=== PATIENT | female | born 1955 | race Caucasian/White ===

== ENCOUNTER 2022-04-04 05:32 | Inpatient (IN) ==
[2022-03-27 16:27] LABS: Basophils % 0.3 % (0.0-0.8); Eosinophils # 0.1 10*3/uL (0.0-0.87); Eosinophils % 1.7 % (0.00-10.9); Hematocrit 36.9 VOL% (35.7-47.0); Hemoglobin 11.2 GM/DL (12.0-16.0); Immature Granulocytes % 0.3 %; Immature Granulocytes Absolute 0.02 #; Lymphocytes # 1.3 10*3/uL (1.4-4.0); Lymphocytes % 21.7 % (21.3-54.2); Mean Corpuscular HGB Conc 30.4 GM/DL (32-36); Mean Corpuscular Volume 81.3 FL (87-102); Mean Platelet Volume 12.2 FL (9.6-12.0); Monocytes # 0.4 10*3/uL (0.11-0.8); Monocytes % 6.1 % (1.7-12.7); Neutrophils % 69.9 % (38.7-73.9); Platelet Count 234 T/CUMM (130-400); Red Blood Count 4.54 MC/CUMM (3.8-5.5); Red Cell Distribution Width 14.6 % (9.3-17.3); White Blood Count 5.8 T/CUMM (4-12)
[2022-03-27 16:45] LABS: Calcium 9.3 MG/DL (8.5-10.1); Osmolality,Calculated 275.5 MOS/KG (273-304); Potassium 4.1 MMOL/L (3.5-5.1)
[2022-04-04] MEDS ORDERED: ALVIMOPAN 12 MG CAPSULE ONE (05:41)
[2022-04-04] MEDS ORDERED: ERTAPENEM 1,000 MG in SODIUM CHLORIDE 0.9% 100 ML IV ONE (06:00)
[2022-04-04] MEDS: LACTATED RINGERS 1,000 ML IV SCH ×5 (06:15→21:55)
[2022-04-04] MEDS ORDERED: FAMOTIDINE 20 MG TABLET PO ONE (06:19)
[2022-04-04] MEDS ORDERED: LIDOCAINE 2% 5 ML VIAL ONE (06:28)
[2022-04-04] MEDS ORDERED: SEVOFLURANE 1 UNIT/15 MINUTE INH ONE ×16 (06:28→11:03)
[2022-04-04] MEDS ORDERED: ROCURONIUM 50 MG/5 ML VIAL IV ONE ×2 (06:28→10:36)
[2022-04-04] MEDS ORDERED: propofoL 200 MG/20 ML VIAL IV ONE (06:28)
[2022-04-04] MEDS ORDERED: DEXAMETHASONE 4 MG/1 ML VIAL ONE ×3 (06:28→07:29)
[2022-04-04] MEDS ORDERED: fentaNYL 100 MCG/2 ML VIAL ONE ×2 (06:28→08:28)
[2022-04-04] MEDS ORDERED: ONDANSETRON 4 MG/2 ML VIAL ONE ×2 (06:28→07:29)
[2022-04-04] MEDS ORDERED: MIDAZOLAM 2 MG/2 ML VIAL ONE (06:29)
[2022-04-04] MEDS ORDERED: ACETAMINOPHEN INJ 1,000 MG/100 ML VIAL IV ONE (06:32)
[2022-04-04] MEDS ORDERED: ROPIVACAINE 0.5% 30 ML VIAL ONE (06:35)
[2022-04-04] MEDS ORDERED: LIDOCAINE 1% 5 ML VIAL ONE (06:35)
[2022-04-04] MEDS ORDERED: LIDOCAINE 1%/EPI INJ 20 ML VIAL ONE (06:48)
[2022-04-04] MEDS ORDERED: BUPIVACAINE MPF 0.25% 10 ML VIAL ONE (06:48)
[2022-04-04] MEDS ORDERED: TISSUE ADHESIVE 1 EACH APPLICATOR TOP ONE (06:48)
[2022-04-04] MEDS ORDERED: KETOROLAC 30 MG/1 ML VIAL ONE (07:30)
[2022-04-04] MEDS ORDERED: PHENYLEPHRINE 1 MG/10 ML SYRINGE IV ONE ×2 (07:30→07:48)
[2022-04-04] MEDS ORDERED: ePHEDrine 50 MG/ML VIAL ONE (07:48)
[2022-04-04] MEDS ORDERED: hydrALAZINE 20 MG/1 ML VIAL ONE (08:55)
[2022-04-04] MEDS ORDERED: GLYCOPYRROLATE 0.4 MG/2 ML VIAL ONE (09:51)
[2022-04-04] MEDS ORDERED: NEOSTIGMINE 10 MG/10 ML VIAL ONE (09:51)
[2022-04-04] MEDS ORDERED: INDOCYANINE GREEN 25 MG VIAL IV ONE (09:55)
[2022-04-04] MEDS ORDERED: LACTATED RINGERS 1,000 ML IV ONE ×2 (11:02→11:03)
[2022-04-04] MEDS ORDERED: LORATADINE 10 MG TABLET PO PRN (11:17)
[2022-04-04] MEDS ORDERED: HYDROmorphone 1 MG/1 ML SYRINGE IV PRN (11:17)
[2022-04-04] MEDS ORDERED: guaiFENesin 200 MG/10 ML UDCUP PO PRN (11:17)
[2022-04-04] MEDS ORDERED: PROMETHAZINE 25 MG TABLET PO PRN (11:17)
[2022-04-04] MEDS ORDERED: ONDANSETRON 4 MG/2 ML VIAL IV PRN (11:17)
[2022-04-04 13:19] LABS: Basophils % 0.1 % (0.0-0.8); Hematocrit 31.6 VOL% (35.7-47.0); Hemoglobin 9.5 GM/DL (12.0-16.0); Immature Granulocytes % 0.5 %; Immature Granulocytes Absolute 0.05 #; Lymphocytes # 0.5 10*3/uL (1.4-4.0); Lymphocytes % 4.7 % (21.3-54.2); Mean Corpuscular HGB Conc 30.1 GM/DL (32-36); Mean Corpuscular Volume 82.1 FL (87-102); Monocytes # 0.3 10*3/uL (0.11-0.8); Monocytes % 2.8 % (1.7-12.7); Neutrophils % 91.9 % (38.7-73.9); Platelet Count 197 T/CUMM (130-400); Red Blood Count 3.85 MC/CUMM (3.8-5.5); Red Cell Distribution Width 14.6 % (9.3-17.3); White Blood Count 9.8 T/CUMM (4-12)
[2022-04-04 13:36] LABS: Calcium 8.6 MG/DL (8.5-10.1); Osmolality,Calculated 283.7 MOS/KG (273-304); Potassium 2.8 MMOL/L (3.5-5.1)
[2022-04-04] MEDS ORDERED: POTASSIUM CHLORIDE RIDER 20 MEQ/100 ML PREMIX IV PRN (14:01)
[2022-04-04] MEDS: KETOROLAC 15 MG/1 ML VIAL IV SCH ×3 (15:02→23:34)
[2022-04-04] MEDS: POTASSIUM CHLORIDE RIDER 10 MEQ/100 ML PREMIX IV PRN ×5 (15:05→23:34)
[2022-04-04 15:51] LABS: Band Neutrophils 3 % (0-10); Lymphocytes 3 % (20-55)
[2022-04-04 15:52] LABS: Platelet Estimate Normal; Total Cells Counted 100
[2022-04-04] MEDS: NYSTATIN OINT 15 GM TUBE TOP SCH ×3 (17:21→21:21)
[2022-04-04] MEDS: MEMANTINE 10 MG TABLET PO SCH ×2 (21:15→21:22)
[2022-04-04] MEDS: traZODone 50 MG TABLET PO SCH ×2 (21:15→21:22)
[2022-04-04] MEDS: valACYclovir 500 MG TABLET PO SCH ×2 (21:15→21:23)
[2022-04-04] MEDS: ALVIMOPAN 12 MG CAPSULE PO SCH ×2 (21:15→21:22)
[2022-04-05] MEDS: KETOROLAC 15 MG/1 ML VIAL IV SCH ×4 (05:37→23:14)
[2022-04-05] MEDS: LACTATED RINGERS 1,000 ML IV SCH ×3 (05:43→17:50)
[2022-04-05 05:54] LABS: Hematocrit 28.9 VOL% (35.7-47.0); Immature Granulocytes % 0.4 %; Immature Granulocytes Absolute 0.04 #; Lymphocytes # 0.5 10*3/uL (1.4-4.0); Lymphocytes % 4.9 % (21.3-54.2); Mean Corpuscular HGB Conc 31.1 GM/DL (32-36); Mean Corpuscular Volume 80.3 FL (87-102); Mean Platelet Volume 12.3 FL (9.6-12.0); Monocytes # 0.6 10*3/uL (0.11-0.8); Monocytes % 5.8 % (1.7-12.7); Neutrophils % 88.9 % (38.7-73.9); Platelet Count 179 T/CUMM (130-400); Red Cell Distribution Width 14.6 % (9.3-17.3); White Blood Count 10.9 T/CUMM (4-12)
[2022-04-05 06:15] LABS: Calcium 8.8 MG/DL (8.5-10.1); Osmolality,Calculated 277.4 MOS/KG (273-304); Potassium 3.9 MMOL/L (3.5-5.1)
[2022-04-05 06:44] LABS: Hypochromia 1+; Lymphocytes 3 % (20-55); Microcytosis 1+; Platelet Estimate Adequate; Total Cells Counted 100
[2022-04-05] MEDS: ATORVASTATIN 10 MG TABLET PO SCH (09:54)
[2022-04-05] MEDS: MEMANTINE 10 MG TABLET PO SCH ×2 (09:54→22:00)
[2022-04-05] MEDS: CITALOPRAM 20 MG TABLET PO SCH (09:54)
[2022-04-05] MEDS: ENOXAPARIN 40 MG/0.4 ML SYRINGE SUBCUT SCH (09:55)
[2022-04-05] MEDS: NYSTATIN OINT 15 GM TUBE TOP SCH ×3 (09:56→22:03)
[2022-04-05] MEDS: traZODone 50 MG TABLET PO SCH (21:59)
[2022-04-05] MEDS: valACYclovir 500 MG TABLET PO SCH (22:00)
[2022-04-06] MEDS: KETOROLAC 15 MG/1 ML VIAL IV SCH ×3 (05:26→18:07)
[2022-04-06 05:52] LABS: Basophils % 0.1 % (0.0-0.8); Eosinophils # 0.1 10*3/uL (0.0-0.87); Eosinophils % 0.7 % (0.00-10.9); Hematocrit 26.7 VOL% (35.7-47.0); Hemoglobin 8.2 GM/DL (12.0-16.0); Immature Granulocytes % 0.6 %; Immature Granulocytes Absolute 0.04 #; Lymphocytes # 0.7 10*3/uL (1.4-4.0); Lymphocytes % 11.1 % (21.3-54.2); Mean Corpuscular HGB Conc 30.7 GM/DL (32-36); Mean Corpuscular Volume 80.4 FL (87-102); Mean Platelet Volume 12.5 FL (9.6-12.0); Monocytes # 0.4 10*3/uL (0.11-0.8); Monocytes % 5.5 % (1.7-12.7); Platelet Count 171 T/CUMM (130-400); Red Blood Count 3.32 MC/CUMM (3.8-5.5); White Blood Count 6.7 T/CUMM (4-12)
[2022-04-06 06:15] LABS: Calcium 8.8 MG/DL (8.5-10.1); Osmolality,Calculated 279.3 MOS/KG (273-304); Potassium 3.7 MMOL/L (3.5-5.1)
[2022-04-06] MEDS: MEMANTINE 10 MG TABLET PO SCH ×2 (08:31→20:20)
[2022-04-06] MEDS: ATORVASTATIN 10 MG TABLET PO SCH (08:31)
[2022-04-06] MEDS: CITALOPRAM 20 MG TABLET PO SCH (08:31)
[2022-04-06] MEDS: ENOXAPARIN 40 MG/0.4 ML SYRINGE SUBCUT SCH (08:32)
[2022-04-06] MEDS: NYSTATIN OINT 15 GM TUBE TOP SCH (09:46)
[2022-04-06] MEDS: DEXT 5% NACL 0.45% KCL 40 MEQ 40 MEQ/1,000 ML BAG IV SCH (10:38)
[2022-04-06 12:15] LABS: Hematocrit 28.4 VOL% (35.7-47.0); Hemoglobin 8.8 GM/DL (12.0-16.0)
[2022-04-06] MEDS: TAMSULOSIN 0.4 MG CAPSULE PO SCH (14:42)
[2022-04-06] MEDS: valACYclovir 500 MG TABLET PO SCH (20:20)
[2022-04-06] MEDS: traZODone 50 MG TABLET PO SCH (20:20)
[2022-04-06] MEDS ORDERED: TAMSULOSIN 0.4 MG CAPSULE PO SCH (21:00)
[2022-04-07] MEDS: KETOROLAC 15 MG/1 ML VIAL IV SCH ×3 (01:19→13:43)
[2022-04-07] MEDS: DEXT 5% NACL 0.45% KCL 40 MEQ 40 MEQ/1,000 ML BAG IV SCH (05:14)
[2022-04-07 05:34] LABS: Basophils % 0.2 % (0.0-0.8); Eosinophils # 0.2 10*3/uL (0.0-0.87); Eosinophils % 5.3 % (0.00-10.9); Hematocrit 26.9 VOL% (35.7-47.0); Hemoglobin 8.3 GM/DL (12.0-16.0); Immature Granulocytes % 0.2 %; Immature Granulocytes Absolute 0.01 #; Lymphocytes # 0.8 10*3/uL (1.4-4.0); Lymphocytes % 20.3 % (21.3-54.2); Mean Corpuscular HGB Conc 30.9 GM/DL (32-36); Mean Corpuscular Volume 82.3 FL (87-102); Mean Platelet Volume 12.1 FL (9.6-12.0); Monocytes # 0.3 10*3/uL (0.11-0.8); Platelet Count 148 T/CUMM (130-400); Red Blood Count 3.27 MC/CUMM (3.8-5.5); Red Cell Distribution Width 14.9 % (9.3-17.3); White Blood Count 4.1 T/CUMM (4-12)
[2022-04-07 05:52] LABS: Calcium 8.4 MG/DL (8.5-10.1); Osmolality,Calculated 278.3 MOS/KG (273-304); Potassium 4.3 MMOL/L (3.5-5.1)
[2022-04-07] MEDS: CITALOPRAM 20 MG TABLET PO SCH (09:00)
[2022-04-07] MEDS: MEMANTINE 10 MG TABLET PO SCH (09:00)
[2022-04-07] MEDS: ATORVASTATIN 10 MG TABLET PO SCH (09:00)
[2022-04-07] MEDS: ENOXAPARIN 40 MG/0.4 ML SYRINGE SUBCUT SCH (09:00)
[2022-04-07] MEDS: TAMSULOSIN 0.4 MG CAPSULE PO SCH (09:00)
[2022-04-07 11:59] VITALS: BP 104/55
== END 2022-04-07 14:28 | DRG 230 ==
LOC: N.OR 05:32 → N.SDSINP 05:32 → N.3E 11:10
PROVIDERS: ADMIT Surgery; ATTEND Surgery